=== PATIENT | female | born 1940 | race Caucasian/White ===

== ENCOUNTER 2018-08-26 21:57 | Emergency (ER) | payer MEDICARE, BC | END 2018-08-26 23:55 | disposition left against medical advice (07) | LOC: ER 21:57 | DX: Z53.21 Procedure and treatment not carried out due to patient leaving prior to being seen by health care provider (principal) ==

== ENCOUNTER → 2018-09-19 | Outpatient (CLI) | payer MEDICARE, BC ==
--- NOTE | 2018-09-30 08:43 | WOMENS IMAGING REPORT ---
EXAM DESCRIPTION: BILAT SCREENING MAMMO W/CAD COMPLETED DATE/TIME: 09/19/2018 3:26 pm REASON FOR STUDY: Z12.31 ROUTINE BILATERAL [id number] ENCNTR SCREEN MAMMOGRAM FOR MALIGNANT NE OPLASM OF DEANNA COMPARISON: 04/15/2015. EXAM PARAMETERS: Standard craniocaudal and mediolateral oblique views of each breast recorded using digital acquisition. Read with the assistance of CAD. .[facility] - [employer] Psychiatric Technician Assistant Version 9.2 LIMITATIONS: None. FINDINGS: RIGHT BREAST MASSES: No suspicious masses. CALCIFICATIONS: No new or suspicious calcifications. ARCHITECTURAL DISTORTION: None. DEVELOPING DENSITY: None. ASYMMETRY: None noted. OTHER: No other significant findings. LEFT BREAST MASSES: A small nodule in the superior breast to be slightly larger. Located 4.5- 5 cm from the nipp le. CALCIFICATIONS: No new or suspicious calcifications. ARCHITECTURAL DISTORTION: None. DEVELOPING DENSITY: None. ASYMMETRY: None noted. OTHER: No other significant findings. IMPRESSION: A small nodule in the superior left breast may be slightly larger. Stable mammographic appearance of the right breast. Assessment: 0 Incomplete: Needs Additional Imaging Evaluation and/or prior Mammograms for Comparison. BREAST DENSITY: b. There are scattered areas of fibroglandular density. BIRAD: 0 Incomplete: Needs Additional Imaging Evaluation and/or prior Mammograms for Comparison. RECOMMENDATION: RECOMMENDED FOLLOW-UP: Recommend additional evaluation with breast tomosynthesis (pr eferred) or compression views of the left breast and ultrasound of the left breast. Recommend routin e screening mammography of the right breast. The patient will be contacted for additional imaging. COMMENT: The patient has been notified of the results by letter per [place] requirements. Additional no tification policies are in place for contacting patient with suspicious or incomplete findings. Quality ID #[id number]: The [employer] recommends an annual screening mammogram for women aged 40 years or over. This facility utilizes a reminder system to ensure that all patients receive reminder letters, and/or direct phone calls for appointments. This includes reminders for routine scr eening mammograms, diagnostic mammograms, or other Breast Imaging Interventions when appropriate. Th is patient will be placed in the appropriate reminder system. TECHNICAL DOCUMENTATION: FINDING NUMBER: (1) ASSESSMENT: (1) JOB ID: [id number] [employer]- All Rights Reserved Reading location - IP/workstation name: [email or web address]
== END ==
LOC: WI 15:10
PROVIDERS: ATTEND Internal Medicine
DX: Z12.31 Encounter for screening mammogram for malignant neoplasm of breast (principal)
CPT/HCPCS: 77067

== ENCOUNTER → 2019-01-22 | Outpatient (CLI) | payer MEDICARE, BC ==
[2019-01-22 09:47] LABS: ABSOLUTE BASOPHILS # (AUTO) 0.1 10^3/uL (0.0-0.2); ABSOLUTE LYMPHOCYTES (AUTO) 1.5 10^3/uL (0.5-4.7); ABSOLUTE MONOCYTES (AUTO) 0.6 10^3/uL (0.1-1.4); ABSOLUTE NEUT (AUTO) 7.4 10^3/uL (1.7-8.2); BASOPHILS % (AUTO) 1.2 % (0-2); EOSINOPHILS % (AUTO) 9.8 % (0-6); HEMATOCRIT 34.4 % (36.0-47.0); HEMOGLOBIN 11.4 g/dL (12.0-15.5); LYMPHOCYTES % (AUTO) 13.9 % (13-45); MEAN CORPUSCULAR HEMOGLOBIN 28.6 pg (27.0-33.4); MEAN CORPUSCULAR HGB CONC 33.3 g/dL (32.0-36.0); MEAN CORPUSCULAR VOLUME 86 fl (80-97); MONOCYTES % (AUTO) 5.5 % (3-13); PLATELET COUNT 373 10^3/uL (150-450); RED CELL DISTRIBUTION WIDTH 14.3 % (11.5-14.0); SEGMENTED NEUTROPHILS % (AUTO) 69.6 % (42-78); TOTAL CELLS COUNTED % (AUTO) 100 %; WHITE BLOOD COUNT 10.7 10^3/uL (4.0-10.5)
== END ==
LOC: OD 08:58
PROVIDERS: ATTEND Family Medicine Geriatric Medicine
DX: D50.9 Iron deficiency anemia, unspecified (principal)
CPT/HCPCS: 36415; 85025

== ENCOUNTER → 2019-02-09 | Outpatient (CLI) | payer MEDICARE, BC ==
--- NOTE | 2019-02-09 12:52 | RADIOLOGY REPORT (SQ) ---
EXAM DESCRIPTION: CHEST PA/LATERAL COMPLETED DATE/TIME: 02/09/2019 9:05 am REASON FOR STUDY: COUGH COMPARISON: None. EXAM PARAMETERS: NUMBER OF VIEWS: two views TECHNIQUE: Digital Frontal and Lateral radiographic views of the chest acquired. RADIATION DOSE: NA LIMITATIONS: none FINDINGS: LUNGS AND PLEURA: No focal consolidation, pleural effusion or pneumothorax. Increased AP diameter with mild flattening of the hemidiaphragm. MEDIASTINUM AND HILAR STRUCTURES: No masses or contour abnormalities. HEART AND VASCULAR STRUCTURES: Heart normal size. No evidence for failure. BONES: No acute findings. HARDWARE: None in the chest. OTHER: No other significant finding. IMPRESSION: No focal consolidation or other evidence of acute cardiopulmonary process. TECHNICAL DOCUMENTATION: JOB ID: [id number] [employer]- All Rights Reserved Reading location - IP/workstation name: [email or web address]
== END ==
LOC: OD 08:49
PROVIDERS: ATTEND Family Medicine Geriatric Medicine
DX: R05 Cough (principal)
CPT/HCPCS: 71046

== ENCOUNTER 2019-03-17 12:02 | Emergency (ER) | payer MEDICARE, BC ==
--- NOTE | 2019-03-17 12:11 | ER Document Report ---
ED Medical Screen (RME) - General Chief Complaint: Post Surgical Pain Stated Complaint: THROAT SWELLING Time Seen by Provider: 03/17/19 12:05 Mode of Arrival: Ambulatory Information source: Patient Notes: 78-year-old female presented to ED for swelling to the left side of her neck. She did have a endoscopy on March 10 at this hospital. The swelling started on and has increased. States she is not on any blood thinners. She states they did find ulcers in the stomach but not in the esophagus she states they did not find anything wrong with the esophagus when they did the endoscopy. States she went to a urgent care over the weekend and they did a strep test and sent her home with antibiotics she went and saw Dr. Miller today and he sent her to the emergency room. I have greeted and performed a rapid initial assessment of this patient. A comprehensive ED assessment and evaluation of the patient, analysis of test results and completion of medical decision making process will be conducted by an additional ED providers. TRAVEL OUTSIDE OF THE [place] IN LAST 30 DAYS: No - Related Data Allergies/Adverse Reactions: No Known Allergies Allergy (Verified 08/26/18 22:14) Past Medical History - Past Medical History Cardiac Medical History: Denies: Hx Coronary Artery Disease, Hx Heart Attack, Hx Hypertension Pulmonary Medical History: Denies: Hx Asthma, Hx Bronchitis, Hx COPD, Hx Pneumonia Neurological Medical History: Denies: Hx Cerebrovascular Accident, Hx Seizures Musculoskeltal Medical History: Reports Hx Arthritis Past Surgical History: Reports: Hx Hysterectomy - Immunizations Hx Diphtheria, Pertussis, Tetanus Vaccination: Yes
--- NOTE | 2019-03-17 12:29 | ER Document Report ---
ED General - General Mode of Arrival: Ambulatory Information source: Patient TRAVEL OUTSIDE OF THE [place] IN LAST 30 DAYS: No - HPI Patient complains to provider of: L neck pain Onset: Last week - pt is s/p EGD per dr. Guillen 1 week ago. 2 days later, pt. with c/o neck pain. Called PCP and was given Rx for Abx. Had no relief and was seen at urgent care 3 days ago. no treatment given but had CT neck yesterday per Dr. Sinha and report showed tracheal and esoph. shift to the R. Recommended vascular evaluation of the neck. <WEI ESTRELLA - Last Filed: 03/17/19 19:24> <BRIGIDO COTTO - Last Filed: 03/24/19 14:52> - General Chief Complaint: Post Surgical Pain Stated Complaint: THROAT SWELLING Time Seen by Provider: 03/17/19 12:05 Primary Care Provider: MARKUS WILLIS MD [Primary Care Provider] - Follow up as needed - Related Data Allergies/Adverse Reactions: No Known Allergies Allergy (Verified 08/26/18 22:14) Past Medical History - General Information source: Patient - Past Medical History Cardiac Medical History: Denies: Hx Coronary Artery Disease, Hx Heart Attack, Hx Hypertension Pulmonary Medical History: Denies: Hx Asthma, Hx Bronchitis, Hx COPD, Hx Pneumonia Neurological Medical History: Denies: Hx Cerebrovascular Accident, Hx Seizures Musculoskeletal Medical History: Reports Hx Arthritis Past Surgical History: Reports: Hx Hysterectomy - Immunizations Hx Diphtheria, Pertussis, Tetanus Vaccination: Yes <WEI ESTRELLA - Last Filed: 03/17/19 19:24> - Social History Smoking Status: Unknown if Ever Smoked Family History: Reviewed & Not Pertinent <BRIGIDO COTTO P - Last Filed: 03/24/19 14:52> Physical Exam - Vital signs Vitals: Temp Pulse Resp BP Pulse Ox 97.4 F 92 16 133/62 H 99 03/17/19 12:09 03/17/19 12:09 03/17/19 12:09 03/17/19 12:09 03/17/19 12:09 Course - Laboratory Result Diagrams: 03/17/19 12:23 03/17/19 12:23 - Diagnostic Test Radiology reviewed: Reports reviewed - CTA suggestive of Lemierre syndrome - EKG Interpretation by In EKG shows normal: Sinus rhythm Rate: Normal Rhythm: NSR - nsr without acute change <WEI ESTRELLA - Last Filed: 03/17/19 19:24> - Laboratory Result Diagrams: 03/17/19 12:23 03/17/19 12:23 <BRIGIDO COTTO - Last Filed: 03/24/19 14:52> - Re-evaluation Re-evalutation: 03/17/19 19:08 Pt's exam unchanged -- I have spoken to Dr. Osorio (ENT) at [facility] and he feels this is not a surgical condition and is typically treated with Abx and anticoagulants. He suggested I try to get the pt. admitted here and if that is not successful, the recommended the hospitalists here will admit. 03/17/19 19:24 I have spoken to Dr. Parra and he feels the pt. should be transferred to [facility] as we have no ENT backup here 03/17/19 19:35 I am waiting for call back from Dr. Doan- hospitalist at [facility]. I have spoken to Dr. Edwards - he will accept the pt 03/17/19 19:59 (WEI ESTRELLA) 03/17/19 22:11 MDM I have spoken with the patient and and they are frustrated with not having left here yet. I spoke with them regarding the delay and they understand the wait but feel nothing is being done here with the excpetion of monitoring. Dr. Pagan has told me that [facility] felt pt would need heparin and that the pt could perhaps wait until arriving at [facility]. Since we have no visability on that we will start a heparin gtt here. 03/17/19 23:12 Pt now has a bed. We are awaiting transport to arrive. 03/18/19 00:33 [facility] transport is here speaking with the pt at this time. She is in no distress. They will be moving to [facility] at this time. (BRIGIDO COTTO) - Vital Signs Vital signs: Temp Pulse Resp BP Pulse Ox 97.4 F 92 17 130/67 H 93 03/17/19 12:09 03/17/19 12:09 03/18/19 00:01 03/18/19 00:01 03/18/19 00:01 - Laboratory Laboratory results interpreted by me: 03/17/19 03/17/19 03/17/19 12:23 12:23 12:23 WBC 12.1 H RBC 2.82 L Hgb 7.2 L Hct 22.6 L MCH 25.4 L MCHC 31.7 L RDW 15.5 H Plt Count 625 H Lymph % (Auto) 9.9 L Absolute Neuts (auto) 9.7 H Seg Neutrophils % 80.1 H PT 15.8 H APTT 41.5 H Est GFR (MDRD) Non-Af 58 L Albumin 3.1 L Critical Care Note - Critical Care Note Total time excluding time spent on procedures (mins): 30 <WEI ESTRELLA - Last Filed: 03/17/19 19:24> Discharge <WEI ESTRELLA - Last Filed: 03/17/19 19:24> <BRIGIDO COTTO - Last Filed: 03/24/19 14:52> - Discharge Clinical Impression: Lemierre syndrome Condition: Fair Disposition: [facility] Referrals: MARKUS WILLIS MD [Primary Care Provider] - Follow up as needed
[2019-03-17 12:43] LABS: ABSOLUTE BASOPHILS # (AUTO) 0.1 10^3/uL (0.0-0.2); ABSOLUTE EOSINOPHILS # (AUTO) 0.3 10^3/uL (0.0-0.6); ABSOLUTE LYMPHOCYTES (AUTO) 1.2 10^3/uL (0.5-4.7); ABSOLUTE MONOCYTES (AUTO) 0.9 10^3/uL (0.1-1.4); ABSOLUTE NEUT (AUTO) 9.7 10^3/uL (1.7-8.2); BASOPHILS % (AUTO) 0.4 % (0-2); EOSINOPHILS % (AUTO) 2.2 % (0-6); HEMATOCRIT 22.6 % (36.0-47.0); LYMPHOCYTES % (AUTO) 9.9 % (13-45); MEAN CORPUSCULAR HEMOGLOBIN 25.4 pg (27.0-33.4); MEAN CORPUSCULAR HGB CONC 31.7 g/dL (32.0-36.0); MEAN CORPUSCULAR VOLUME 80 fl (80-97); MONOCYTES % (AUTO) 7.4 % (3-13); PLATELET COUNT 625 10^3/uL (150-450); RED BLOOD COUNT 2.82 10^6/uL (3.72-5.28); RED CELL DISTRIBUTION WIDTH 15.5 % (11.5-14.0); SEGMENTED NEUTROPHILS % (AUTO) 80.1 % (42-78); TOTAL CELLS COUNTED % (AUTO) 100 %; WHITE BLOOD COUNT 12.1 10^3/uL (4.0-10.5)
[2019-03-17 12:51] LABS: INTERNATIONAL RATION (INR) 1.26; PROTHROMBIN TIME 15.8 SEC (11.4-15.4)
[2019-03-17 12:52] LABS: PARTIAL THROMBOPLASTIN TIME 41.5 SEC (23.5-35.8)
[2019-03-17 12:58] LABS: HEMOGLOBIN 7.2 g/dL (12.0-15.5)
[2019-03-17 13:02] LABS: ALBUMIN 3.1 g/dL (3.5-5.0); CHLORIDE 101 mmol/L (98-107); POTASSIUM 4.7 mmol/L (3.6-5.0)
[2019-03-17 13:14] LABS: CREATINE KINASE MB 0.75 ng/mL (<4.55)
[2019-03-17 13:16] LABS: TROPONIN I < 0.012 ng/mL
[2019-03-17 13:39] LABS: ALKALINE PHOSPHATASE 123 U/L (38-126); ANION GAP 10 (5-19); ASPARTATE AMINO TRANSFERASE 31 U/L (14-36); BILIRUBIN,DIRECT 0.1 mg/dL (0.0-0.4); BILIRUBIN,TOTAL 0.3 mg/dL (0.2-1.3); BLOOD UREA NITROGEN 14 mg/dL (7-20); CALCIUM 8.8 mg/dL (8.4-10.2); CARBON DIOXIDE 27 mmol/L (22-30); CREATINE KINASE 52 U/L (30-135); GLUCOSE 96 mg/dL (75-110); TOTAL PROTEIN 6.6 g/dL (6.3-8.2)
[2019-03-17] MEDS ORDERED: FENTANYL CITRATE INJ/PF 100 MCG/2 ML AMPUL IV ONE (22:15)
[2019-03-17] MEDS ORDERED: ONDANSETRON HCL INJ/PF 4 MG/2 ML SDV IV ONE (22:16)
[2019-03-17] MEDS ORDERED: HEPARIN SODIUM,PORCINE/D5W 25,000 UNIT/250 ML RTUINJ IV PRN (22:30)
[2019-03-17] MEDS ORDERED: HEPARIN SOD (PORCINE) 1,000 UNIT/ML 10 ML VIAL IV PRN (22:30)
[2019-03-18 00:23] VITALS: BP 130/67
--- NOTE | 2019-03-18 10:58 | RADIOLOGY REPORT (SQ) ---
EXAM DESCRIPTION: CTA NECK COMPLETED DATE/TIME: 03/17/2019 2:09 pm REASON FOR STUDY: neck pain Neck pain COMPARISON: None available TECHNIQUE: Axial dynamic scanning technique with dynamic contrast enhancement through the extra-uncrater nial carotid and vertebral arteries. Multiplanar reconstruction. 3-D MIPS and Volume-rendered imag es acquired at the workstation and saved to PACS. Images are reviewed in soft tissue, bone, lung w indows. All CT scanners at this facility use dose modulation, iterative reconstruction, and/or weight based d osing when appropriate to reduce radiation dose to as low as reasonably achievable (ALARA). [facility]: Dose Right [facility]: CareDose [facility]: Dose Right [facility]: Teradose 4D [facility]: [employer] CONTRAST TYPE AND DOSE: contrast/concentration: Isovue 350.00 mg/ml; Total Contrast Delivered: 100.0 ml; Total Saline Delivered: 71.0 ml See abdomen RENAL FUNCTION: See abdomen LIMITATIONS: None. FINDINGS: AORTIC ARCH: Normal three-vessel origin. Bilateral subclavian arteries are patent. No d issection. RIGHT CAROTIDS: Patent common, internal and external carotid arteries without suggestion of significa nt stenosis or irregular plaque. No dissection. RIGHT VERTEBRAL: Origin not well visualized. Remaining aspects are patent. No dissection. No high- grade stenosis. LEFT CAROTIDS: Patent common, internal and external carotid arteries without suggestion of significan t stenosis or irregular plaque. No dissection. LEFT VERTEBRAL: Patent. No dissection. OTHER: There is abnormal asymmetric soft tissue density and fatty stranding extending from the level of the skull base to the superior mediastinum on the left. There is obscuration of the fat plane wit hin the carotid sheath. There is left cervical adenopathy extending to the level of the superior med iastinum. For reference there is a left paratracheal node measuring 13 mm in short axis (series 3, i mage 401). The left internal jugular is non-opacified throughout its course. There is mild rightwar d tracheal deviation throughout the neck. CHEST: Mediastinal adenopathy. 10 mm left para-aortic lymph node (series 3, image 14). IMPRESSION: 1. Abnormal asymmetric soft tissue density and fatty stranding along the vascular sheat h extending from the level of the skullbase to the superior mediastinum on the left. There is non op acification of the left jugular vein throughout its course most compatible with acute thrombus. Nam tional associated left-sided cervical adenopathy. Findings may be sequelae of infectious thrombophle bitis of the IJ (Lemierre syndrome) or sequelae of neoplastic/lymphoproliferative disorder. 2. Normal appearance of the arteries without aneurysm, high-grade stenosis or occlusion. Findings were discussed with Dr. Cervantes at 429 p.m. on 03/17/2019 COMMENT: Quality ID #[id number]: Measurements of distal internal carotid diameter were used as the denomina tor for stenosis measurement. TECHNICAL DOCUMENTATION: JOB ID: [id number] Quality ID # [id number]: Final reports with documentation of one or more dose reduction techniques (e.g., Au tomated exposure control, adjustment of the mA and/or kV according to patient size, use of iterative reconstruction technique) 2010 [employer]- All Rights Reserved Reading location - IP/workstation name: [email or web address]
--- NOTE | 2019-03-18 10:58 | RADIOLOGY REPORT (SQ) ---
EXAM DESCRIPTION: CT ABD/PELVIS WITH IV ONLY COMPLETED DATE/TIME: 03/17/2019 2:09 pm REASON FOR STUDY: post procedure pain COMPARISON: None. TECHNIQUE: CT scan of the abdomen and pelvis performed with intravenous and oral contrast using hakeem coco scanning technique with dynamic intravenous contrast injection. Images reviewed with lung, soft t issue, and bone windows. Reconstructed coronal and sagittal MPR images reviewed. Delayed images for e valuation of the urinary system also acquired. All images stored on PACS. All CT scanners at this facility use dose modulation, iterative reconstruction, and/or weight based d osing when appropriate to reduce radiation dose to as low as reasonably achievable (ALARA). [facility]: Dose Right [facility]: CareDose [facility]: Dose Right [facility]: Teradose 4D [facility]: [employer] CONTRAST TYPE AND DOSE: 100 cc Omnipaque 350 RENAL FUNCTION: Creatinine 0.94 RADIATION DOSE: . LIMITATIONS: None. FINDINGS: LOWER CHEST: No significant findings. No nodules or infiltrates. LIVER: Hepatic steatosis. SPLEEN: Normal size. No focal lesions. PANCREAS: No masses. No significant calcifications. No adjacent inflammation or peripancreatic fluid collections. Pancreatic duct not dilated. GALLBLADDER: No identified stones by CT criteria. No inflammatory changes to suggest cholecystitis. ADRENAL GLANDS: No significant masses or asymmetry. RIGHT KIDNEY AND URETER: No definite solid masses. Hypodense cortical lesion, possibly cysts althoug h indeterminate secondary to subcentimeter size. There is right hydroureteronephrosis to the level o f the distal ureter where there is a 6 mm obstructing stone (series 5, image 76). No significant del ayed nephrogram suggestive of low-grade or partial obstructive process. LEFT KIDNEY AND URETER: No definite solid masses. subcentimeter cortical hypodense lesion, likely cy st. No nephrolithiasis. No hydronephrosis. AORTA AND VESSELS: No aneurysm. No dissection. Renal arteries, SMA, celiac without stenosis. RETROPERITONEUM: Retroperitoneal adenopathy. For reference there is a left para-aortic lymph node me asuring 1.4 cm in short axis (series 5, image 42). BOWEL AND PERITONEAL CAVITY: Scattered colonic diverticula. No focal bowel wall thickening. No evid ence intestinal obstruction. APPENDIX: Surgically absent PELVIS: Status post hysterectomy. No free fluid. No discrete mass. ABDOMINAL WALL: No masses. No hernias. BONES: No acute bony abnormality. Lower lumbar facet arthropathy. OTHER: No other significant finding. IMPRESSION: 1. Obstructing 6 mm stone at the distal right ureter with associated mild right hydrour eteronephrosis to that level. No additional stones identified. 2. Retroperitoneal adenopathy. Findings suggestive of lymphoproliferative disorder or metastatic di sease. 3. Additional chronic findings as above. Findings were discussed with Dr. Cervantes 1613 hours on 03/17/2019 TECHNICAL DOCUMENTATION: JOB ID: [id number] Quality ID # [id number]: Final reports with documentation of one or more dose reduction techniques (e.g., Au tomated exposure control, adjustment of the mA and/or kV according to patient size, use of iterative reconstruction technique) 2010 [employer]- All Rights Reserved Reading location - IP/workstation name: [email or web address]
--- NOTE | 2019-03-19 | EKG REPORT ---
SEVERITY:- NORMAL ECG - SINUS RHYTHM : Confirmed by: Rob Snyder 18-Mar-2019 23:59:18
== END 2019-03-18 01:20 | disposition short-term general hospital (02) ==
LOC: ER 12:02
DX: I80.8 Phlebitis and thrombophlebitis of other sites (principal); G89.18 Other acute postprocedural pain; M54.2 Cervicalgia; R22.1 Localized swelling, mass and lump, neck; Z98.890 Other specified postprocedural states
CPT/HCPCS: 93005; 96376; 99291; 96375; 96365; 86900; 86901; 36415; 82553; 86850; 82550; 85025; 85610; 85730; 80053; 84484; 70498; 74177; 93010; J1644 ×2; J3010; J2405